=== PATIENT | female | born 1960 | race Caucasian/White ===

== ENCOUNTER → 2016-06-23 | Outpatient (CLI) | payer OTHER ==
[~2016-06-23] MED LIST: ASCA500 PO; ATV5 PO; BSP5 PO; CHOL100010 PO; CONJ0.453 PO; CYM20 PO; CYM30 PO; MULT-506 PO
--- NOTE | 2016-06-25 08:05 | MAMMOGRAPHY REPORT ---
BILATERAL DIGITAL DIAGNOSTIC MAMMOGRAM TOMOSYNTHESIS WITH CAD AND TARGETED LEFT ULTRASOUND: 06/23/2016 CLINICAL HISTORY: Follow-up of the left breast for probably benign masses identified in the 2:00 and 7:00 axes on ultrasound. Also annual bilateral screening mammogram. TECHNIQUE: Bilateral breast tomosynthesis in addition to standard 2D mammography was performed. Curr ent study was also evaluated with a Computer Aided Detection (CAD) system. COMPARISON: Comparison is made to exams dated: 12/19/2015 ultrasound, 12/19/2015 mammogram, 06/19/2015 ultrasound, 11/27/2009 mammogram, 12/02/2010 ultrasound, and 05/26/2011 mammogram - [facility]. BREAST COMPOSITION: There are scattered areas of fibroglandular density in both breasts. FINDINGS: There is a multilobulated, partially circumscribed, 6.4 x 4.6 x 3.0 mm mass in the lower i nner middle one third of the left breast. When comparing to the 06/13/2015 mammogram, this mass has decreased, measuring 5.3 x 5.1 x 3.9 mm on the prior exam. A second mass superior to the first on the left MLO view has also significantly decreased in size, currently measuring 3.1 mm and previousl y measuring 3.5 mm. No new suspicious mass, architectural distortion or cluster of microcalcificati ons is seen bilaterally. The right breast is stable compared to prior mammograms. Targeted ultrasound was performed in the 2:00, 4:00 and 7:00 axes of the left breast. In the 7:00 a xis, 37 m from the nipple, there is a small cluster of microcysts, correlating with the mass seen ma mmographically in the lower inner quadrant. This measures 4.7 x 2.1 x 4.1 mm, and has decreased com paring to the 06/19/2015 ultrasound at which time it measured 5.0 x 3.6 x 5.1 mm. In the 4:00 left breast, 3 cm from the nipple, there is a circumscribed hypoechoic cystic-appearing mass measuring 2. 6 x 2.0 x 2.7 mm. This was previously documented to measure 3.1 x 2.6 x 3.5 mm and has also decreas ed in size. No mass is identified in the 2:00 periareolar left breast to correlate with the prior s uspected cyst. IMPRESSION: ACR BI-RADS CATEGORY 2: BENIGN, TARGETED ULTRASOUND ACR BI-RADS CATEGORY 2: BENIGN Small circumscribed left breast masses have decreased in size comparing to prior mammograms and ultr asounds, confirming benignity. There is no mammographic evidence of malignancy bilaterally. Advise follow-up in 1 year for next annual screening mammogram. These results and recommendations were di scussed with the patient at the time of the exam. Approximately 10% of breast cancers are not detected with mammography. A negative mammographic repor t should not delay biopsy if a clinically suggestive mass is present. Melinda Hargrove M.D. ay/:06/23/2016 12:36:09 [employer] Fence Builder: Antonietta YANG)(Ravi), [facility] letter sent: Normal 1/2 BI-RADS Code: ACR BI-RADS Category 2: Benign Ultrasound BI-RADS: ACR BI-RADS Category 2: Benign
== END | disposition home or self-care (01) ==
LOC: C.MAMM 09:42
PROVIDERS: ATTEND Obstetrics & Gynecology
DX: N63 Unspecified lump in breast (principal)

== ENCOUNTER → 2016-08-14 | Outpatient (CLI) | payer OTHER | END | disposition home or self-care (01) | LOC: C.PAPS 14:11 | PROVIDERS: ATTEND Obstetrics & Gynecology | DX: Z12.4 Encounter for screening for malignant neoplasm of cervix (principal) ==